=== PATIENT | male | born 1950 | race African-American/Black ===

== ENCOUNTER 2022-09-24 19:19 | Emergency (ER) | payer MEDICARE, OTHER, SELFPAY ==
[2022-09-24 19:26] VITALS: BP 155/78; PULSE 67; RESP 18; TEMP 36.8; O2SAT 98
--- NOTE | 2022-09-24 20:02 | ED.GENADULT ---
HPI - General Adult General Chief complaint: Upper Respiratory Infection Stated complaint: SOB, RSV + Time Seen by Provider: 09/24/22 19:23 History of Present Illness HPI narrative: 72-year-old male presenting to the emergency department for evaluation for shortness of breath. Patient did test positive for RSV yesterday. Patient states his is currently admitted for a pneumonia and also tested positive for RSV. Patient did present to the emergency room by EMS and was at 100% SPO2. Upon arrival to the emergency department patient is 98% on room air denies any current shortness of breath. Patient states his symptoms have been ongoing for the last few days and states she has had some cough and congestion but the cough has been improving. Patient also does complain of some sinus congestion Related Data Home Medications Medication Instructions Recorded Confirmed cholecalciferol (vitamin D3) 25 25 mcg PO DAILY 07/22/22 07/22/22 mcg (1,000 unit) capsule fluticasone furoate 50 inhalation 07/22/22 07/22/22 mcg/actuation blister powder for inhalation losartan 50 mg-hydrochlorothiazide 1 tablet PO DAILY 07/22/22 07/22/22 12.5 mg tablet oxybutynin chloride 15 mg 15 mg PO DAILY 07/22/22 07/22/22 tablet,extended release 24 hr pantoprazole 40 mg tablet,delayed 40 mg PO QAM 07/22/22 07/22/22 release travoprost 0.004 % eye drops 1 drp EACH EYE QPM 07/22/22 07/22/22 Allergies Allergy/AdvReac Type Severity Reaction Status Date / Time Contrast Media Allergy Severe Dyspnea / Uncoded 07/22/22 13:14 SOB Review of Systems Review of Systems: CONSTITUTIONAL: Denies fever, chills, or sweats. EYES: Denies visual changes, redness, or discharge. ENT: Denies rhinorrhea, congestion, sore throat, or otalgia. CARDIOVASCULAR: Denies chest pain, palpitations, or edema. RESPIRATORY: See HPI GASTROINTESTINAL: Denies abdominal pain, nausea, vomiting, or diarrhea. GENITOURINARY: Denies dysuria or hematuria. SKIN: Denies rash or itching. MUSCULOSKELETAL: Denies back pain, joint pain, or myalgia. NEUROLOGIC: Denies headache, numbness, or weakness. [facility] Past Medical History Medical History History of hypertension Surgical History Surgical History Hx of cholecystectomy Hx of left knee surgery Hx of prostatectomy Hx of right knee surgery Family History Family History Father Asthma Social History Social History Smoking status: Never smoker Alcohol intake: never Substance use: never Course Course Emergency Course: Patient was updated on the results of his work-up. Patient is well-appearing and in no respiratory distress. Patient was provided medications for home for symptomatic control of the RSV. Patient was educated on reasons to return to the emergency room. All questions and concerns were addressed and patient was comfortable with the plan for discharge and close follow-up. Vital Signs Vital signs: Vital Signs Temperature 98.3 F 09/24/22 19:26 Pulse Rate 67 09/24/22 19:26 Respiratory Rate 18 09/24/22 19:26 Blood Pressure 155/78 H 09/24/22 19:26 Pulse Oximetry 98 09/24/22 19:26 Oxygen Delivery Room Air 09/24/22 19:26 Temperature 98.3 F 09/24/22 19:26 Pulse Rate 67 09/24/22 19:26 Respiratory Rate 18 09/24/22 19:26 Blood Pressure 155/78 H 09/24/22 19:26 Pulse Oximetry 98 09/24/22 19:26 Oxygen Delivery Room Air 09/24/22 19:26 Medical Decision Making Vital Signs Vital Signs: Vital Signs Temperature 98.3 F 09/24/22 19:26 Pulse Rate 67 09/24/22 19:26 Respiratory Rate 18 09/24/22 19:26 Blood Pressure 155/78 H 09/24/22 19:26 Pulse Oximetry 98 09/24/22 19:26 Oxygen Delivery Room Air 09/24/22 19:26 Temperature 98.3 F 1
== END 2022-09-24 20:58 | disposition home or self-care (01) ==
LOC: ANHED 20:23
PROVIDERS: Emergency Provider Emergency Medicine; PCP Internal Medicine Infectious Disease
DX: J22 Unspecified acute lower respiratory infection (principal); B97.4 Respiratory syncytial virus as the cause of diseases classified elsewhere; I10 Essential (primary) hypertension; Z90.79 Acquired absence of other genital organ(s)
CPT/HCPCS: 99283

== ENCOUNTER 2022-10-15 08:00 | Outpatient (NON) | payer MEDICARE, OTHER, SELFPAY | END 2022-10-15 08:01 | disposition home or self-care (01) | PROVIDERS: PCP Internal Medicine Infectious Disease; Visit Provider Internal Medicine Gastroenterology | DX: Z86.010 Personal history of colon polyps (principal) | CPT/HCPCS: 88305 ==

== ENCOUNTER 2022-10-15 11:48 | Day surgery (SDC) | payer MEDICARE, OTHER, SELFPAY ==
[2022-10-01 10:25] VITALS: BMI 27.3
--- NOTE | 2022-10-14 10:32 | WPDANESEPPF ---
Anes - Initial Pre Proc Eval Procedure: Operation Date: 10/15/22 13:30 Proposed Procedures p Esophagogastroduodenoscopy - Silver Hall MD s Diagnostic Colonoscopy - Silver Hall MD Date/Time: 10/14/22 10:32 Surgeon: Silver Hall MD Pre Op Diagnosis: Gerd, Change in Bowel Habits Patient Data Age: 72 Gender: M Height: 1.68 m Weight: 77 kg Allergies Allergy/AdvReac Type Severity Reaction Status Date / Time Contrast Media Allergy Severe Dyspnea / Uncoded 10/15/22 12:36 SOB Home Medications Medication Instructions Recorded Confirmed Type cholecalciferol (vitamin D3) 25 25 mcg PO DAILY 07/22/22 10/01/22 History mcg (1,000 unit) capsule fluticasone furoate 50 2 inh inhalation DAILY 07/22/22 10/01/22 History mcg/actuation blister powder for inhalation losartan 50 mg-hydrochlorothiazide 1 tablet PO DAILY 07/22/22 10/01/22 History 12.5 mg tablet oxybutynin chloride 15 mg 15 mg PO DAILY 07/22/22 10/01/22 History tablet,extended release 24 hr pantoprazole 40 mg tablet,delayed 40 mg PO QAM 07/22/22 10/01/22 History release travoprost 0.004 % eye drops 1 drp EACH EYE QPM 07/22/22 10/01/22 History albuterol sulfate 90 mcg/actuation 1 inh inhalation Q4H PRN shortness 09/24/22 10/01/22 Rx aerosol inhaler of breath or wheezing #6.7 grams benzonatate 100 mg capsule 100 mg PO TID PRN cough #14 caps 09/24/22 10/01/22 Rx cefdinir 300 mg capsule 300 mg PO DAILY 10/15/22 10/15/22 History Patient hx anesthesia problems: none Family hx anesthesia problems: none Results Review: All pre-operative results and documents have been reviewed as part of the pre-operative evaluation. [facility] Past Medical History Medical History (Updated 10/14/22 @ 10:33 by Luiz Kowalski DO) GERD (gastroesophageal reflux disease) History of hypertension PONV (postoperative nausea and vomiting) Surgical History Surgical History Hx of cholecystectomy Hx of left knee surgery Hx of prostatectomy Hx of right knee surgery Family History Family History Father Asthma Social History Social History Smoking status: Never smoker Alcohol intake: never Substance use: never Substance use type: does not use Living arrangements: with family Spiritual care concerns: No Anes - Eval Final PreProcedure Day of Procedure 10/14/22 10:32 Patient weight: overweight Heart: regular rate and rhythm Lungs: clear to auscultation Airway: Mallampati scale class II Neurological: alert and oriented Last oral intake: >/= 8 hours ASA classification: II Emergent: no Anesthetic plan: proceed Anesthesia type and monitoring: general GIVS and standard monitoring Results Review: All pre-operative results and documents have been reviewed as part of the pre-operative evaluation. Informed Consent: The patient's anesthetic plan and its attendant risks and benefits were discussed with the patient/family/POA. Questions were solicited and answers provided to the satisfaction of the patient/family/POA.
--- NOTE | 2022-10-15 10:40 | PM.HPGS ---
History of Present Illness History of Present Illness Consent: Risks, benefits, and alternatives have been discussed and questions answered. Patient agrees to proceed with procedure. Chief complaint: Gerd, Change in Bowel Habits Narrative: Kandace Almazan is a 72 year old male who has had a burning sensation in the epigastric area and up into his chest for over a year.? This comes and goes, proximally once a week.? It will feel like a ' gritty' or crawling sensation.? He has been on pantoprazole for most of that time but does not feel that it has made a difference.? He denies regurgitation into his mouth.? He denies dysphagia.? He denies nausea or vomiting.? He has lost about 10 lb during this period of time.? Also, he has become very constipated lately.? On 2 occasions in the last month he has had to take Dulcolax to get his bowels moving.? He did have a couple polyps removed 5 years ago. Review of Systems Review of Systems: All systems reviewed & are unremarkable except as noted in HPI and below PMFSH Past Medical History Medical History (Updated 10/14/22 @ 10:33 by Luiz Kowalski DO) GERD (gastroesophageal reflux disease) History of hypertension PONV (postoperative nausea and vomiting) Surgical History Surgical History Hx of cholecystectomy Hx of left knee surgery Hx of prostatectomy Hx of right knee surgery Family History Family History Father Asthma Social History Social History Smoking status: Never smoker Alcohol intake: never Substance use: never Substance use type: does not use Living arrangements: with family Spiritual care concerns: No Meds Home Medications and Allergies Home Medications Medication Instructions Recorded Confirmed Type cholecalciferol (vitamin D3) 25 25 mcg PO DAILY 07/22/22 10/01/22 History mcg (1,000 unit) capsule fluticasone furoate 50 2 inh inhalation DAILY 07/22/22 10/01/22 History mcg/actuation blister powder for inhalation losartan 50 mg-hydrochlorothiazide 1 tablet PO DAILY 07/22/22 10/01/22 History 12.5 mg tablet oxybutynin chloride 15 mg 15 mg PO DAILY 07/22/22 10/01/22 History tablet,extended release 24 hr pantoprazole 40 mg tablet,delayed 40 mg PO QAM 07/22/22 10/01/22 History release travoprost 0.004 % eye drops 1 drp EACH EYE QPM 07/22/22 10/01/22 History albuterol sulfate 90 mcg/actuation 1 inh inhalation Q4H PRN shortness 09/24/22 10/01/22 Rx aerosol inhaler of breath or wheezing #6.7 grams benzonatate 100 mg capsule 100 mg PO TID PRN cough #14 caps 09/24/22 10/01/22 Rx cefdinir 300 mg capsule 300 mg PO DAILY 10/15/22 10/15/22 History Allergies Allergy/AdvReac Type Severity Reaction Status Date / Time Contrast Media Allergy Severe Dyspnea / Uncoded 10/15/22 12:36 SOB Exam Const: General: alert Orientation/consciousness: patient oriented x3 Resp: Auscultation: clear to auscultation bilaterally Cardio: Rhythm: regular rhythm GI: GI Palp: Yes Soft to palpation and No Tenderness to palpation present (GI) Neuro: General: patient oriented x3 Assessment and Plan Assessment and plan (1) GERD (gastroesophageal reflux disease): Code(s): K21.9 - Gastro-esophageal reflux disease without esophagitis Status: Acute Assessment and Plan: EGD with possible biopsy or dilatation or cautery. (2) Change in bowel habits: Code(s): R19.4 - Change in bowel habit Status: Acute Assessment and Plan: Colonoscopy with possible biopsy or polypectomy or cautery or injection of substances.
[2022-10-15 12:38] VITALS: BP 134/81; PULSE 92; RESP 14; TEMP 37.3; O2SAT 100
[2022-10-15 12:39] VITALS: BMI 27.7
[2022-10-15] MEDS: LACTATED RINGERS 1,000 ML 150 ML IV CONT (13:00)
--- NOTE | 2022-10-15 13:51 | SUR.OPER ---
RESOLUTION 360 CLIP X 1 LOT # [id number] EXPIRATION 11/12/2024
[2022-10-15 13:53] VITALS: BP 119/77; PULSE 74; RESP 16; O2SAT 97
[2022-10-15 14:03] VITALS: BP 112/66; PULSE 77; RESP 16; O2SAT 100
[2022-10-15 14:13] VITALS: BP 126/92; PULSE 64; RESP 16; O2SAT 100
--- NOTE | 2022-10-15 14:33 | WPDANESPN ---
Anes - Prog Note Post-Op Date/Time: 10/15/22 14:33 Cardiovascular status: normal Respiratory status: normal Airway patency: baseline Mental status: baseline Post-Op hydration status: normal Vital Signs: Last Vital Signs Temp 37.3 C 10/15/22 12:38 Pulse 64 10/15/22 14:13 Resp 16 10/15/22 14:13 BP 126/92 H 10/15/22 14:13 Pulse Ox 100 10/15/22 14:13 O2 Del Method Room Air 10/15/22 14:13 Pain Score (VAS): 0 I/O: Intake & Output 10/14/22 10/15/22 10/15/22 23:59 07:59 15:59 Intake Total 400 Balance 400 Post-procedural complaints: none Patient Feedback: Patient satisfied with anesthetic care. Other Findings: Patient vital signs back to baseline. Patient denies nausea and vomiting. Patient's pain under control. Patient OK for discharge.
== END 2022-10-15 14:44 | disposition home or self-care (01) ==
PROVIDERS: PCP Internal Medicine Infectious Disease; Visit Provider Internal Medicine Gastroenterology
PROC: 0DJ08ZZ Inspection of Upper Intestinal Tract, Via Natural or Artificial Opening Endoscopic (ICD-10-PCS; CPT 43235; principal; 2022-10-15 13:30)
PROC: 0DJD8ZZ Inspection of Lower Intestinal Tract, Via Natural or Artificial Opening Endoscopic (ICD-10-PCS; CPT 45378; 2022-10-15 13:30)
DX: R19.4 Change in bowel habit (principal)
CPT/HCPCS: 45385; 43239